=== PATIENT | female | born 1985 | race Caucasian/White ===

== ENCOUNTER 2023-03-13 12:33 | Emergency (ER) | payer MEDICAID, OTHER ==
[~2023-03-13] VITALS: Ht 160 cm; Wt 59.0 kg
[2023-03-13] MEDS ORDERED: LORAZEPAM 2 MG/1 ML VIAL ONE (13:10)
[2023-03-13] MEDS ORDERED: HYDR12.55 PO (13:26)
[2023-03-13] MEDS ORDERED: AMLO10TA59 PO (13:26)
[2023-03-13] MEDS ORDERED: SUMA100T PO (13:26)
[2023-03-13] MEDS ORDERED: LORAZEPAM 2 MG/1 ML VIAL IM ONE (13:30)
[2023-03-13 14:08] LABS: BASOPHILS # (AUTO) 0.1 K/UL (0.0-0.2); BASOPHILS % (AUTO) 0.9 % (0.0-2.0); EOSINOPHILS # (AUTO) 0.1 K/uL (0.0-0.7); EOSINOPHILS % (AUTO) 0.9 % (0.0-7.0); HEMATOCRIT 36.8 % (31.2-41.9); HEMOGLOBIN 11.5 g/dL (10.9-14.3); LYMPHOCYTES % (AUTO) 25.3 % (20.5-51.5); MEAN CORPUSCULAR HEMOGLOBIN 23.9 uug (24.7-32.8); MEAN CORPUSCULAR HGB CONC 31 g/dL (32.3-35.6); MEAN CORPUSCULAR VOLUME 76.2 fL (75.5-95.3); MONOCYTES # (AUTO) 0.7 K/uL (0.1-1.30); MONOCYTES % (AUTO) 9.5 % (0.0-11.0); NEUTROPHILS % (AUTO) 63.4 % (38.5-71.5); PLATELET COUNT (AUTO) 314 K/uL (179-408); RED BLOOD CELL COUNT(AUTO) 4.83 MIL/uL (3.63-4.92); RED CELL DISTRIBUTION WIDTH 18.3 % (12.3-17.7); WHITE BLOOD COUNT (AUTO) 7.8 K/uL (3.8-11.8)
[2023-03-13] MEDS ORDERED: HYDROMORPHONE 1 MG/1 ML DISP.SYRIN IM ONE ×2 (14:15→14:45)
[2023-03-13] MEDS ORDERED: diphenhydrAMINE 50 MG/1 ML VIAL IM ONE ×2 (14:15→14:45)
[2023-03-13 14:16] LABS: CALCIUM 8.9 mg/dL (8.5-10.1); CARBON DIOXIDE 27 mmol/L (21-32); CHLORIDE 101 mmol/L (98-107); CREATININE 0.9 mg/dL (0.6-1.3); GLUCOSE 109 mg/dL (74-106); POTASSIUM 3.3 mmol/L (3.5-5.1); SODIUM SERUM 137 mmol/L (136-145); UREA NITROGEN, BLOOD 13 mg/dL (7-18)
[2023-03-13 14:17] LABS: DIFFERENTIAL COMMENT 1
[2023-03-13 14:24] LABS: ALANINE AMINOTRANSFERASE 25 U/L (14-59); ALBUMIN 4.1 g/dL (3.4-5.0); ALKALINE PHOSPHATASE 87 U/L (50-136); ASPARTATE AMINOTRANSFERASE 18 U/L (15-37); BILIRUBIN,DIRECT 0.1 mg/dL (0.0-0.2); BILIRUBIN,TOTAL 0.3 mg/dL (0.2-1.0)
[2023-03-13 14:26] LABS: ACETAMINOPHEN < 2.0 ug/mL (10-30)
[2023-03-13 14:27] LABS: AMMONIA < 10 umol/L (11-32)
[2023-03-13 14:29] LABS: THYROID STIMULATING HORMONE 0.822 mIU/mL (0.358-3.740)
[2023-03-13] MEDS ORDERED: diphenhydrAMINE 50 MG/1 ML VIAL ONE (14:37)
[2023-03-13] MEDS ORDERED: HYDROMORPHONE 1 MG/1 ML DISP.SYRIN ONE (14:37)
[2023-03-13 14:50] LABS: *BILIRUBIN,URIN NEGATIVE (NEGATIVE); *BLOOD, URINE 3+ (NEGATIVE); *CLARITY,URINE CLEAR (CLEAR); *COLOR,URINE YELLOW (YELLOW); *KETONES,URINE NEGATIVE (NEGATIVE); *PROTEIN,URINE TRACE (NEGATIVE); *UROBILINOGEN,URINE 0.2 E.U./dl (NORMAL); LEUKOCYTE ESTERASE ,URINE TRACE (NEGATIVE); NITRITE, URINE NEGATIVE (NEGATIVE); UGLUCOSE NEGATIVE (NEGATIVE)
[2023-03-13 15:10] LABS: *AMPHETAMINE, URINE POSITIVE (NEGATIVE); *BARBITURATE, URINE NEGATIVE (NEGATIVE); *BENZODIAZEPINE, URINE POSITIVE (NEGATIVE); *CANNABINOID, URINE NEGATIVE (NEGATIVE); *COCCAINE, URINE POSITIVE (NEGATIVE); *OPIATE, URINE NEGATIVE (NEGATIVE); *PHENCYCLIDINE SCREEN,URINE POSITIVE (NEGATIVE); FENTANYL, URINE NEGATIVE (NEGATIVE)
[2023-03-13 15:23] LABS: ETHANOL < 3 MG/DL (0-10)
[2023-03-13 15:30] LABS: BACTERIA,URINE FEW /HPF (NONE SEEN); RBC,URINE 80-100 /HPF (0-3); SQUAMOUS EPITHELIAL CELL,UR MODERATE /HPF (NONE SEEN); WBC,URINE 0-3 /HPF (0-3)
[2023-03-13] MEDS ORDERED: NITROGLYCERIN OINT 1 GM PACKET TP ONE ×2 (18:11→18:15)
[2023-03-13] MEDS ORDERED: ACETAMINOPHEN ES 500 MG TABLET ONE (22:24)
[2023-03-13] MEDS ORDERED: ACETAMINOPHEN ES 500 MG TABLET PO ONE (22:30)
[2023-03-13] MEDS ORDERED: POTASSIUM CHLORIDE 20 MEQ TAB.PRT.SR PO ONE (23:00)
[2023-03-14 00:42] VITALS: BP 140/76; TEMP 98.3; O2SAT 97
== END 2023-03-14 00:20 | disposition home or self-care (01) ==
LOC: ER 12:33
DX: S06.0X0A Concussion without loss of consciousness, initial encounter (principal); F19.90 Other psychoactive substance use, unspecified, uncomplicated; R10.2 Pelvic and perineal pain; R07.89 Other chest pain; M79.642 Pain in left hand; M79.662 Pain in left lower leg; M25.512 Pain in left shoulder; M79.672 Pain in left foot; I10 Essential (primary) hypertension; E87.6 Hypokalemia; Z88.2 Allergy status to sulfonamides; Z79.899 Other long term (current) drug therapy; W19.XXXA Unspecified fall, initial encounter; Y93.89 Activity, other specified; Y92.89 Other specified places as the place of occurrence of the external cause; Y99.8 Other external cause status
CPT/HCPCS: 80076; 80048; 81001; 82140; 84443; 85025; 85730; 84484; 84702; 36415; 93005; 71045; 73060; 73090; 73120; 73551; 73590; 73620; 70450; 72125; 99291; 96372 ×3; 80299; 80320; 80307; J1200; J2060; J1170; A4663; A9150; G0480